=== PATIENT | male | born 1950 | race Caucasian/White ===

== ENCOUNTER → 2017-09-24 13:36 | Outpatient (CLI) | payer BC, SELFPAY ==
--- NOTE | 2017-09-24 13:39 | ECHOD_ITS ---
Reason For Study: CAD, ASHD Procedure This was a 2D Doppler, Color Flow transthoracic echocardiogram. Exam performed in department. Left Ventricle Normal size and thickness. The estimated ejection fraction is 65 %. Stage 2 diastolic dysfunction. No regional wall motion abnormalities noted. Right Ventricle Normal size and thickness. Normal systolic function. Atria Normal left atrium. Normal right atrium. Normal atrial septum. Mitral Valve The mitral valve is structurally normal. No prolapse or stenosis seen. Trivial mitral valve insufficiency. Tricuspid Valve Normal tricuspid valve. Trivial tricuspid valve insufficiency. Right ventricular systolic pressure estimated to be 38 mmHg. Mild pulmonary hypertension. Aortic Valve Trisinus/trileaflet aortic valve. Normal aortic valve. Pulmonic Valve Normal pulmonic valve. Great Vessels Normal aortic root. Normal arch. Normal inferior vena cava. Inferior vena cava collapse with sniff. Pericardium/Pleural No pericardial effusion. MMode/2D Measurements & Calculations LVIDd: 4.8 cm IVSd: 1.1 cm Ao root diam: 3.0 cm LVIDs: 2.6 cm LVPWd: 0.90 cm LA dimension: 3.7 cm RVDd: 3.3 cm FS: 45.5 % LAV(MOD-bp): 40.0 ml LA A4 area: 19.2 cm2 RA A4 area: 14.7 cm2 LAV(MOD-bp) Indexed: 21.7 ml/m2 LAV(MOD-sp2): 25.1 ml LAV(MOD-sp4): 52.8 ml Time Measurements MV dec time: 0.21 sec Doppler Measurements & Calculations MV E max sergio: 102.5 cm/sec Lat Peak E' Sergio: 14.3 cm/sec Med Peak E' Sergio: 10.4 cm/sec MV A max serigo: 81.3 cm/sec E/E' lat: 7.2 E/E' med: 9.8 MV E/A: 1.3 MV V2 max: 137.7 cm/sec MV P1/2t max sergio: 139.6 cm/sec Ao V2 max: 178.6 cm/sec MV max P.6 mmHg MV P1/2t: 54.7 msec Ao max P.8 mmHg MV V2 mean: 63.5 cm/sec MV dec slope: 748.3 cm/sec2 Ao V2 mean: 105.1 cm/sec MV mean P.0 mmHg MVA(P1/2t): 4.0 cm2 Ao mean P.4 mmHg MV V2 VTI: 35.3 cm Ao V2 VTI: 31.0 cm LV V1 max: 110.2 cm/sec PA V2 max: 124.2 cm/sec TR max sergio: 286.5 cm/sec LV V1 max P.9 mmHg TR max P.8 mmHg LV V1 mean P.1 mmHg LV V1 mean: 66.8 cm/sec LV V1 VTI: 20.9 cm Interpretation Summary The estimated ejection fraction is 65 %. Stage 2 diastolic dysfunction. Trivial mitral valve insufficiency. Trivial tricuspid valve insufficiency. Right ventricular systolic pressure estimated to be 38 mmHg. Mild pulmonary hypertension. There is no comparison study available. Ordering Physician: Nayan Joya Referring Physician: Nayan Joya Performed By: Sudhir Craven [facility]
== END ==
PROVIDERS: Family Provider Family Medicine; PCP Family Medicine; Visit Provider Internal Medicine Cardiovascular Disease
DX: Z95.5 Presence of coronary angioplasty implant and graft (principal); I25.10 Atherosclerotic heart disease of native coronary artery without angina pectoris; I25.2 Old myocardial infarction
CPT/HCPCS: 93306

== ENCOUNTER → 2017-09-27 10:38 | Outpatient (CLI) | payer BC, SELFPAY ==
--- NOTE | 2017-09-27 10:39 | STE_ITS ---
Reason For Study: CAD/ASHD Stress Results Protocol: Stress Echocardiogram Maximum Predicted HR: 155 bpm Target HR: 132 bpm% Maximum Pr edicted HR: 103 % DurationHeart Rate Stage (mm:ss) (bpm) BPCom ment BASELINE 89 150/78 DEFINITY 3 ML DILUTED USED DURING STRESS BRYAN PROTOCOL- STAGE 1 3:00 11 8 154/78 BRYAN PROTOCOL- STAGE 2 3:00 13 0 158/82 BRYAN PROTOCOL- STAGE 3 3:00 15 1 166/80 BRYAN PROTOCOL- STAGE 4 1:48 16 0 / RECOVERY 98 130/78 Stress Duration: 10:48 mm:ss Maximum Stress HR: 160 bpm Baseline Echocardiogram Findings The estimated ejection fraction is 65 %. Stress Echo Wall motion Data Resting WMIntermediate WMStress WM Resting Wall Motion Wall Motion Stress No regional wall motion No regional wall motion abnormalities noted. abnormalities noted. EKG Data The baseline ECG demonstrates normal sinus rhythm with at rate of _ beats per minute. The patient exercised according to the regular Bryan protocol for a total duration of 10:48. The maximum heart rate attained was 181 beats per minute. This was 116% of maximum predicted heart rate. The patient exercised into stage 5 of the Bryan protocol. During stress, there were no ST or T wave changes noted to suggest ischemia. No clinical angina was noted. Interpretation Summary The study was technically difficult. Contrast injection was performed. The estimated ejection fraction is 65 %. Normal adequate treadmill echocardiogram. Negative for ischemia by EKG and echocardiographic criteria. No anginal symptoms noted. Rare PVC noted. Appropriate blood pressure response to exercise. Average exercise capacity for age. Final LVEF is 75%. No complications. Decreased sensitivity due to poor echo windows requiring Definity enhancement agent. Ordering Physician: Nayan Joya Referring Physician: Nayan Joya Performed By: Hetal Benson, GUANACO, RVT
[2017-09-27 12:36] LABS: AST(SGOT) 35 U/L (15-37); Alanine Aminotransfer ALT/SGPT 43 U/L (16-61); Albumin, Serum 4.2 g/dL (3.2-5.0); Alkaline Phosphatase 57 U/L (45-117); Bilirubin, Direct 0.29 mg/dL (0.00-0.30); Cholesterol 107 mg/dL (200); Globulin 3.1 g/dL (2.2-4.2); High Density Lipoprotein 65 mg/dL; Protein, Total 7.3 g/dL (6.4-8.2); Triglycerides 57 mg/dL; Very Low Density Lipoprotein 11 mg/dL (5-40)
== END ==
PROVIDERS: Family Provider Family Medicine; PCP Family Medicine; Visit Provider Internal Medicine Cardiovascular Disease
DX: I25.10 Atherosclerotic heart disease of native coronary artery without angina pectoris (principal); I25.2 Old myocardial infarction; Z95.5 Presence of coronary angioplasty implant and graft; E11.9 Type 2 diabetes mellitus without complications; E78.5 Hyperlipidemia, unspecified
CPT/HCPCS: 36415; 80061; 80076; 93017; 93350; Q9957; A4216

== ENCOUNTER → 2018-11-25 | Outpatient (CLI) | payer BC, SELFPAY ==
[2018-11-21 13:03] VITALS: BMI 28.1
[2018-11-25 07:53] LABS: Absolute Lymphocyte Count 1.52 X10^3/ul (0.83-4.51); Absolute Neutrophil Count 2.2 X10^3/uL (2.0-7.7); Basophil# 0.02 X10^3/uL; Basophil% 0.5 % (0-1); Eosinophil# 0.14 X10^3/uL; Eosinophils% 3.3 % (0-5); Hemoglobin 15.5 g/dl (13.0-16.5); Lymphocyte # 1.52 X10^3/ul (4.0); Lymphocyte % 36.4 % (19-41); Mean Corp Hgb Conc 34.4 g/gl (32-36); Mean Corpuscular Hgb 30.8 pg (27.0-32.0); Mean Corpuscular Volume 89.3 fL (80-94); Mean Platelet Vol. 10.7 fl (6.2-12.0); Monocyte# 0.34 X10^3/uL; Monocyte% 8.1 % (0-10); Neutrophil # 2.16 X10^3/uL (2.7-7.7); Neutrophil % 51.7 % (47-70); Platelet Count 111 K/mm3 (150-450); RBC Distribution Width CV 12.8 % (11.6-14.6); RBC Distribution Width SD 41.5 fl (35.1-43.9); Red Blood Count 5.04 M/mm3 (4.6-6.2); White Blood Count 4.2 K/mm3 (4.4-11.0)
[2018-11-25 07:54] LABS: POSITIVE COUNT NO; POSITIVE DIFFERENTIAL NO; POSITIVE MORPHOLOGY NO
[2018-11-25 08:27] LABS: AST(SGOT) 27 U/L (15-37); Alanine Aminotransfer ALT/SGPT 37 U/L (16-61); Alkaline Phosphatase 55 U/L (45-117); Anion Gap 7 (5-15); BUN 17 mg/dL (7-18); BUN/Creat Ratio 15.2 RATIO (10-20); Bilirubin, Direct 0.26 mg/dL (0.00-0.30); Calcium,Total 8.5 mg/dL (8.5-10.1); Chloride 108 mmol/L (98-107); Cholesterol 125 mg/dL (200); Creatinine, Serum 1.12 mg/dL (0.70-1.30); EST Glomerular Filtration Rate 70 mL/min (>60); Est Glom Filt Rate - Afr Amer 84 mL/min (>60); Globulin 2.9 g/dL (2.2-4.2); Glucose 114 mg/dL (74-106); High Density Lipoprotein 68 mg/dL; Potassium 3.7 mmol/L (3.5-5.1); Protein, Total 6.9 g/dL (6.4-8.2); Sodium Level 143 mmol/L (136-145); Thyroid Stim Hormone (TSH) 5.53 uIU/mL (0.358-3.74); Triglycerides 67 mg/dL; Very Low Density Lipoprotein 13 mg/dL (5-40)
[2018-11-25 08:52] LABS: Hemoglobin A1c 5.7 % (4.2-6.3)
== END | disposition home or self-care (01) ==
LOC: LAB 07:14
PROVIDERS: Family Provider Family Medicine; PCP Family Medicine; Referring Provider Internal Medicine Cardiovascular Disease; Visit Provider Internal Medicine Cardiovascular Disease
DX: E78.5 Hyperlipidemia, unspecified (principal); I25.10 Atherosclerotic heart disease of native coronary artery without angina pectoris; R73.9 Hyperglycemia, unspecified
CPT/HCPCS: 80048; 80061; 80076; 83036; 84443; 85025

== ENCOUNTER → 2019-02-25 13:31 | Outpatient (CLI) | payer BC, SELFPAY ==
[2018-11-21 13:03] VITALS: BMI 28.1
[2019-02-25 15:35] LABS: Absolute Lymphocyte Count 1.48 X10^3/uL (0.83-4.51); Absolute Neutrophil Count 2.8 X10^3/uL (2.0-7.7); Basophil# 0.04 X10^3/uL; Basophil% 0.8 % (0-1); Eosinophils% 2.1 % (0-5); Hematocrit 43.2 % (40-54); Hemoglobin 14.6 g/dL (13.0-16.5); Lymphocyte # 1.48 X10^3/ul (4.0); Lymphocyte % 31.4 % (19-41); Mean Corp Hgb Conc 33.8 g/dL (32-36); Mean Corpuscular Hgb 31.1 pg (27.0-32.0); Mean Corpuscular Volume 91.9 fL (80-94); Mean Platelet Vol. 10.6 fl (6.2-12.0); Monocyte# 0.29 X10^3/uL; Monocyte% 6.1 % (0-10); NRBC Flagged by Analyzer 0 % (0-5); Neutrophil # 2.81 X10^3/uL (2.7-7.7); Neutrophil % 59.6 % (47-70); Platelet Count 131 K/mm3 (150-450); RBC Distribution Width CV 12.7 % (11.6-14.6); RBC Distribution Width SD 42.7 fl (35.1-43.9); White Blood Count 4.7 K/mm3 (4.4-11.0)
[2019-02-25 16:07] LABS: T4 Free Direct 0.85 ng/dL (0.76-1.46); Thyroid Stim Hormone (TSH) 4.98 uIU/mL (0.358-3.74)
== END ==
PROVIDERS: Family Provider Family Medicine; PCP Family Medicine; Visit Provider Family Medicine
DX: D69.6 Thrombocytopenia, unspecified (principal); D72.819 Decreased white blood cell count, unspecified; E03.9 Hypothyroidism, unspecified
CPT/HCPCS: 36415; 84439; 84443; 85025

== ENCOUNTER → 2019-05-30 10:47 | Outpatient (CLI) | payer MEDICARE, SELFPAY ==
[2018-11-21 13:03] VITALS: BMI 28.1
[2019-05-30 12:30] LABS: Absolute Lymphocyte Count 1.72 X10^3/uL (0.83-4.51); Absolute Neutrophil Count 2.1 X10^3/uL (2.0-7.7); Basophil# 0.03 X10^3/uL; Basophil% 0.7 % (0-1); Eosinophils% 2.3 % (0-5); Hematocrit 43.4 % (40-54); Hemoglobin 14.5 g/dL (13.0-16.5); Lymphocyte # 1.72 X10^3/ul (4.0); Lymphocyte % 40.4 % (19-41); Mean Corp Hgb Conc 33.4 g/dL (32-36); Mean Corpuscular Hgb 30.3 pg (27.0-32.0); Mean Corpuscular Volume 90.8 fL (80-94); Monocyte# 0.27 X10^3/uL; Monocyte% 6.3 % (0-10); NRBC Flagged by Analyzer 0 % (0-5); Neutrophil # 2.14 X10^3/uL (2.7-7.7); Neutrophil % 50.3 % (47-70); Platelet Count 147 K/mm3 (150-450); RBC Distribution Width CV 13.2 % (11.6-14.6); RBC Distribution Width SD 43.8 fl (35.1-43.9); Red Blood Count 4.78 M/mm3 (4.6-6.2); White Blood Count 4.3 K/mm3 (4.4-11.0)
[2019-05-30 15:53] LABS: AST(SGOT) 30 U/L (15-37); Alanine Aminotransfer ALT/SGPT 48 U/L (16-61); Alkaline Phosphatase 54 U/L (45-117); Bilirubin, Direct 0.16 mg/dL (0.00-0.30); Cholesterol 132 mg/dL (200); High Density Lipoprotein 67 mg/dL; Thyroid Stim Hormone (TSH) 3.74 uIU/mL (0.358-3.74); Triglycerides 85 mg/dL; Very Low Density Lipoprotein 17 mg/dL (5-40)
== END ==
PROVIDERS: Nurse Practitioner Family; Family Provider Family Medicine; PCP Family Medicine; Visit Provider Family Medicine
DX: E03.9 Hypothyroidism, unspecified (principal); D69.6 Thrombocytopenia, unspecified; E78.5 Hyperlipidemia, unspecified
CPT/HCPCS: 80061; 80076; 84439; 84443; 85025

== ENCOUNTER → 2019-12-22 07:15 | Outpatient (CLI) | payer MEDICARE, OTHER, SELFPAY ==
[2019-06-13 14:21] VITALS: BMI 28.8
[2019-12-22 08:13] LABS: AST(SGOT) 30 U/L (15-37); Alanine Aminotransfer ALT/SGPT 43 U/L (16-61); Albumin, Serum 4.1 g/dL (3.2-5.0); Alkaline Phosphatase 55 U/L (45-117); Bilirubin, Direct 0.27 mg/dL (0.00-0.30); Cholesterol 138 mg/dL (200); Globulin 3.2 g/dL (2.2-4.2); High Density Lipoprotein 70 mg/dL; Protein, Total 7.3 g/dL (6.4-8.2); Triglycerides 83 mg/dL; Very Low Density Lipoprotein 17 mg/dL (5-40)
== END ==
PROVIDERS: PCP Family Medicine; Referring Provider Internal Medicine Cardiovascular Disease; Visit Provider Internal Medicine Cardiovascular Disease
DX: E78.00 Pure hypercholesterolemia, unspecified (principal)
CPT/HCPCS: 36415; 80061; 80076

== ENCOUNTER → 2020-05-04 13:30 | Outpatient (CLI) | payer MEDICARE, OTHER, SELFPAY ==
[2020-01-06 09:23] VITALS: BMI 29.2
[2020-05-04 15:32] LABS: Absolute Lymphocyte Count 1.49 X10^3/uL (0.83-4.51); Absolute Neutrophil Count 2.4 X10^3/uL (2.0-7.7); Basophil# 0.02 X10^3/uL; Basophil% 0.5 % (0-1); Eosinophil# 0.11 X10^3/uL; Eosinophils% 2.6 % (0-5); Hematocrit 45.8 % (40-54); Hemoglobin 15.3 g/dL (13.0-16.5); Lymphocyte # 1.49 X10^3/ul (4.0); Lymphocyte % 34.6 % (19-41); Mean Corp Hgb Conc 33.4 g/dL (32-36); Mean Corpuscular Volume 92.7 fL (80-94); Mean Platelet Vol. 10.3 fl (6.2-12.0); NRBC Flagged by Analyzer 0 % (0-5); Neutrophil # 2.39 X10^3/uL (2.7-7.7); Neutrophil % 55.3 % (47-70); Platelet Count 135 K/mm3 (150-450); RBC Distribution Width CV 12.4 % (11.6-14.6); RBC Distribution Width SD 42.4 fl (35.1-43.9); Red Blood Count 4.94 M/mm3 (4.6-6.2); White Blood Count 4.3 K/mm3 (4.4-11.0)
[2020-05-04 16:14] LABS: Anion Gap 5 (5-15); BUN 20 mg/dL (7-18); BUN/Creat Ratio 20.6 RATIO (10-20); Calcium,Total 9.1 mg/dL (8.5-10.1); Chloride 109 mmol/L (98-107); Creatinine, Serum 0.97 mg/dL (0.70-1.30); EST Glomerular Filtration Rate 82 mL/min (>60); Est Glom Filt Rate - Afr Amer 99 mL/min (>60); Glucose 89 mg/dL (74-106); Potassium 3.7 mmol/L (3.5-5.1); Sodium Level 142 mmol/L (136-145); Thyroid Stim Hormone (TSH) 5.99 uIU/mL (0.358-3.74)
== END ==
PROVIDERS: PCP Family Medicine; Visit Provider Family Medicine
DX: D69.6 Thrombocytopenia, unspecified (principal); E03.9 Hypothyroidism, unspecified
CPT/HCPCS: 36415; 80048; 84439; 84443; 85025

== ENCOUNTER 2020-07-20 22:39 | Outpatient (RCR) | payer MEDICARE, OTHER, SELFPAY ==
[2020-06-16 14:28] VITALS: BMI 29.9
[2020-07-20] MEDS: COVID-19 VACC, MRNA(PFIZER)/PF 30 MCG/0.3 ML SYRINGE IM (07:10)
[2020-08-10] MEDS: COVID-19 VACC, MRNA(PFIZER)/PF 30 MCG/0.3 ML SYRINGE IM (07:00)
== END 2020-10-19 23:59 ==
LOC: IMMUN 22:39
PROVIDERS: PCP Family Medicine; Visit Provider Family Medicine
DX: Z23 Encounter for immunization (principal)
CPT/HCPCS: 0001A; 0002A; 91300

== ENCOUNTER 2021-06-06 08:11 | Outpatient (CLI) | payer MEDICARE, OTHER, SELFPAY ==
[2021-06-06 08:31] LABS: Absolute Lymphocyte Count 1.52 X10^3/uL (0.83-4.51); Absolute Neutrophil Count 2.7 X10^3/uL (2.0-7.7); Basophil# 0.03 X10^3/uL; Basophil% 0.6 % (0-1); Eosinophil# 0.14 X10^3/uL; Eosinophils% 2.9 % (0-5); Hematocrit 46.5 % (40-54); Hemoglobin 15.7 g/dL (13.0-16.5); Lymphocyte # 1.52 X10^3/ul (0.83-4.51); Lymphocyte % 31.7 % (19-41); Mean Corp Hgb Conc 33.8 g/dL (32-36); Mean Corpuscular Hgb 31.2 pg (27.0-32.0); Mean Corpuscular Volume 92.3 fL (80-94); Mean Platelet Vol. 10.2 fl (6.2-12.0); Monocyte# 0.36 X10^3/uL; Monocyte% 7.5 % (0-10); NRBC Flagged by Analyzer 0 % (0-5); Neutrophil # 2.74 X10^3/uL (2.7-7.7); Neutrophil % 57.3 % (47-70); Platelet Count 159 K/mm3 (150-450); RBC Distribution Width SD 43.5 fl (35.1-43.9); Red Blood Count 5.04 M/mm3 (4.6-6.2); White Blood Count 4.8 K/mm3 (4.4-11.0)
[2021-06-06 08:57] LABS: ALB/GLOB Ratio 1.2 RATIO (0.9-2.4); AST(SGOT) 41 U/L (15-37); Alanine Aminotransfer ALT/SGPT 64 U/L (16-61); Alkaline Phosphatase 59 U/L (45-117); Anion Gap 7 (5-15); BUN 23 mg/dL (7-18); BUN/Creat Ratio 21.3 RATIO (10-20); Bilirubin, Direct 0.26 mg/dL (0.00-0.30); Calcium,Total 9.1 mg/dL (8.5-10.1); Chloride 106 mmol/L (98-107); Cholesterol 144 mg/dL (200); Creatinine, Serum 1.08 mg/dL (0.70-1.30); EST Glomerular Filtration Rate 72 mL/min (>60); Est Glom Filt Rate - Afr Amer 87 mL/min (>60); Globulin 3.3 g/dL (2.2-4.2); Glucose 138 mg/dL (74-106); High Density Lipoprotein 71 mg/dL; Potassium 3.8 mmol/L (3.5-5.1); Protein, Total 7.3 g/dL (6.4-8.2); Sodium Level 141 mmol/L (136-145); Triglycerides 83 mg/dL; Very Low Density Lipoprotein 17 mg/dL (5-40)
== END 2021-06-06 23:59 | disposition short-term general hospital (02) ==
PROVIDERS: PCP Family Medicine; Visit Provider Internal Medicine Cardiovascular Disease
DX: D69.6 Thrombocytopenia, unspecified (principal); D72.819 Decreased white blood cell count, unspecified; I25.10 Atherosclerotic heart disease of native coronary artery without angina pectoris
CPT/HCPCS: 36415; 80053; 80061; 82248; 85025